=== PATIENT | female | born 1935 | race Caucasian/White ===

== ENCOUNTER 2019-07-31 17:54 | Inpatient (IN) | payer MEDICARE, OTHER ==
[~2019-07-31] VITALS: Ht 157.5 cm; Wt 55.9 kg
[~2019-07-31 17:54] MED LIST: AMARYL4 MG PO; ASPIR 8181 MG PO; AZITHROMYCIN250 MG PO; BYETTA10 MCG/0.0; METFORMIN HCL500 MG PO; NASONEX17 GM; NORVASC10 MG PO; SYNTHROID75 MCG PO; VITAMIN D31000 UNI1 PO; VYTORIN 10-201 EACH PO
[2019-07-31] MEDS ORDERED: SODIUM CHLORIDE 0.9% 500ML 500 ML IV STA (17:56)
[2019-07-31 18:38] LABS: BASOPHILS # (AUTO) 0.1 (0.0-0.1); BASOPHILS % 0.5 % (0.0-1.0); HEMATOCRIT 44.3 % (34.2-44.1); HEMOGLOBIN 13.9 g/dL (12.0-16.0); LYMPHOCYTES # (AUTO) 2.2 (1.0-3.2); LYMPHOCYTES % 11.9 % (18.0-39.1); MEAN CORPUSCULAR HEMOGLOBIN 30.9 pg (28-32); MEAN CORPUSCULAR HGB CONC 31.4 g/dL (31-35); MEAN CORPUSCULAR VOLUME 98.4 fL (81-99); MONOCYTES % 5.6 % (4.4-11.3); NEUTROPHILS # (AUTO) 14.3 (2.1-6.9); NEUTROPHILS % 77.4 % (38.7-80.0); PLATELET COUNT 368 x10e3/uL (140-360); RED CELL DISTRIBUTION WIDTH 15.4 % (11.7-14.4)
[2019-07-31 18:41] LABS: CLARITY,URINE CLEAR (CLEAR); COLOR,URINE YELLOW (YELLOW); LEUKOCYTE ESTERASE ,URINE NEGATIVE (NEGATIVE); NITRITE,URINE NEGATIVE (NEGATIVE); PROTEIN,URINE DIPSTICK 1+ (NEGATIVE)
[2019-07-31 18:42] LABS: AMPHETAMINES SCREEN,URINE NEGATIVE (NEGATIVE); BENZODIAZEPINES SCREEN,URINE NEGATIVE (NEGATIVE); BILIRUBIN,URINE SMALL (NEGATIVE); KETONES,URINE 3+ (NEGATIVE); PHENCYCLIDINE SCREEN,URINE NEGATIVE (NEGATIVE); URINE UROBILINOGEN 0.2 mg/dL (0.2 - 1)
[2019-07-31 18:45] LABS: INR 0.9; PARTIAL THROMBOPLASTIN TIME 26.8 seconds (23.8-35.5); PROTHROMBIN TIME 12.7 seconds (11.9-14.5)
[2019-07-31] MEDS ORDERED: INSULIN REGULAR, HUMAN 100 UNIT/1 ML 3ML VIAL IV STA (18:50)
[2019-07-31] MEDS ORDERED: SODIUM CHLORIDE 0.9% 1000ML 1,000 ML IV STA ×2 (18:50→21:30)
[2019-07-31 18:56] LABS: AMORPHOUS SEDIMENT,URINE RARE (FEW); BACTERIA,URINE RARE /HPF; EPITHELIAL CELLS,URINE RARE /LPF; YEAST,URINE RARE
--- NOTE | 2019-07-31 19:01 | Diagnostic Imaging Report ---
EXAMINATION: CHEST SINGLE (PORTABLE) INDICATION: COMPARISON: None FINDINGS: AP view TUBES and LINES: None. LUNGS/PLEURA: Lungs are well inflated. There are bilateral perihilar peribronchial thickening which could be due to lower airway disease or viral infection. Chronic changes/scarring are seen bilateral lung apices. There is no pleural effusion or pneumothorax. HEART AND MEDIASTINUM: The cardiomediastinal silhouette is unremarkable. BONES AND SOFT TISSUES: No acute osseous lesion. Soft tissues are unremarkable. UPPER ABDOMEN: No free air under the diaphragm. IMPRESSION: Bilateral perihilar peribronchial thickening which could be due to lower airway disease or viral infection. Signed by: Adal Davis MD on 07/31/2019 6:58 PM
[2019-07-31 19:20] LABS: ALANINE AMINOTRANSFERASE 10 IU/L (0-55); ALBUMIN 3.6 g/dL (3.5-5.0); BLOOD UREA NITROGEN 55 mg/dL (7-26); BUN/CREATININE RATIO 23 (6-25); CALCIUM 11.7 mg/dL (8.4-10.2); CHLORIDE 100 mmol/L (98-107); CREATININE, SERUM 2.37 mg/dL (0.57-1.11); EST GLOMERULAR FILTRATION RATE 20 ML/MIN (60-); SODIUM 135 mmol/L (136-145)
[2019-07-31 19:21] LABS: ALBUMIN/GLOBULIN RATIO 1.1 (0.8-2.0); ALKALINE PHOSPHATASE 71 IU/L (40-150); CREATINE KINASE 29 IU/L (29-168)
[2019-07-31 19:23] LABS: CARBON DIOXIDE < 5 mmol/L (22-29); GLUCOSE 568 mg/dL (74-118)
[2019-07-31 19:37] LABS: MAGNESIUM 2.7 MG/DL (1.3-2.1)
--- NOTE | 2019-07-31 19:44 | Diagnostic Imaging Report ---
History:AMS Comparison studies:None Technique: Axial images were obtained from the skull base to the vertex. Coronal and sagittal images reconstructed from the axial data. Intravenous contrast: None Dose modulation, iterative reconstruction, and/or weight based adjustment of the mA/kV was utilized to reduce the radiation dose to as low as reasonably achievable. Findings: Scalp/skull: No abnormalities. Extra-axial spaces: No masses. No fluid collections. Brain sulci: Mildly prominent. Ventricles: Mild compensatory dilatation. No hydrocephalus. Parenchyma: Scattered subtle hypodensities in the supratentorial white matter are small vessel ischemic changes. No masses, hemorrhage, acute or chronic cortical vascular insults. Sellar/suprasellar region: No abnormalities. Craniocervical junction: Patent foramen magnum. No Chiari one malformation. Incidental findings: Atherosclerotic calcifications in the carotid siphons . Impression: No acute abnormalities. Chronic findings: 1. Mild generalized volume loss. 2. Mild supratentorial white matter small vessel ischemic changes. Signed by: DR Geovanny Benitez M.D. on 07/31/2019 7:41 PM
[2019-07-31] MEDS ORDERED: SODIUM CHLORIDE 0.9% 1000ML 1,000 ML IV SCH (19:45)
--- OUTSIDE RECORDS SUMMARY | 2019-07-31 19:49 | XMS REPORT ---
Author Author [facility] Organization [facility] Address Unknown Phone Unavailable Care Team Providers Care Office Technician Name Role Phone KYLAH FUCHS Unavailable Unavailable Problems This patient has no known problems. Allergies, Adverse Reactions, Alerts This patient has no known allergies or adverse reactions. Medications This patient has no known medications. Results Test Description Test Time Test Comments Text Results Atomic Results Result Comments CT BRAIN WO 2019-07-31 19:39:00 [facility] [address] [address] Patient Name: ALEKSANDRA RAMOS MR #: [id number] : 1935 Age/Sex: 84/F Req #: [id number] Adm Physician: Ordered by: XIAO ORTIZ MD Report #: [id number] Location: ER Room/Bed: Procedure: [id number] CT/CT BRAIN WO Exam Date: 07/31/19 Exam Time: 1830 REPORT STATUS: Signed History:AMS Comparison studies:None Technique: Axial images were obtained from the skull base to the vertex. Coronal and sagittal images reconstructed from the axial data. Intravenous contrast: None Dose modulation, iterative reconstruction, and/or weight based adjustment of the mA/kV was utilized to reduce the radiation dose to as low as reasonably achievable. Findings: Scalp/skull: No abnormalities. Extra-axial spaces: No masses. No fluid collections. Brain sulci: Mildly prominent. Ventricles: Mild compensatory dilatation. No hydrocephalus. Parenchyma: Scattered subtle hypodensities in the supratentorial white m atter are small vessel ischemic changes. No masses, hemorrhage, acute or chronic cortical vascular insults. Sellar/suprasellar region: No abnormalities. Craniocervical junction: Patent foramen magnum. No Chiari one malformation. Incidental findings: Atherosclerotic calcifications in the carotid siphons . Impression: No acute abnormalities. Chronic findings: 1. Mild generalized volume loss. 2. Mild supratentorial white matter small vessel ischemic changes. Signed by: DR Geovanny Benitez M.D. on 07/31/2019 7:41 PM Dictated By: GEOVANNY PANDYA MD 40 Transcribed By: TRAVIS on 07/31/191940 COPY TO: XIAO ORTIZ MD CHEST SINGLE (PORTABLE) 2019-07-31 18:56:00 [address] [address] Patient Name: ALEKSANDRA RAMOS MR #: [id number] : 1935 Age/Sex: 84/F Req #: [id number] Adm Physician: Ordered by: HEAVENLY PARRA NP Report #: [id number] Location: ER Room/Bed: Procedure: [id number] DX/CHEST SINGLE (PORTABLE) Exam Date: 07/31/19 Exam Time: 1829 REPORT STATUS: Signed EXAMINATION: CHEST SINGLE (PORTABLE) INDICATION: COMPARISON: None FINDINGS: AP view TUBES and LINES: None. LUNGS/PLEURA: Lungs are well inflated. There are bilateral perihilar peribronchial thickening which could be due to lower airway disease or viral infection. Chronic changes/scarring are seen bilateral lung apices. There is no pleural effusion or pneumothorax. HEART AND MEDIASTINUM: The cardiomediastinal silhouette is unremarkable. BONES AND SOFT TISSUES: No acute osseous lesion. Soft tissues are unremarkable. UPPER ABDOMEN: No free air under the diaphragm. IMPRESSION: Bilateral perihilar peribronchial thickening which could be due to lower airway disease or viral infection. Signed by: Adal Breen MD on 07/31/2019 6:58 PM Dictated By: ADAL RBEEN MD 57 Transcribed By: TRAVIS on 07/31/191857 COPY TO: HEAVENLY PARRA NP
[2019-07-31] MEDS ORDERED: MAGNESIUM SULF 1GRAM/DEXTROSE 100 ML IV PRN (20:00)
[2019-07-31] MEDS ORDERED: DEXTROSE 5%/0.45% SOD CHL 1,000 ML IV SCH (20:00)
[2019-07-31] MEDS ORDERED: INSULIN REGULAR, HUMAN 3ML VL 100 UNIT in SODIUM CHLORIDE 0.9% 99 ML IV SCH ×2 (20:00)
[2019-07-31] MEDS: MEROPENEM 1GM 100 ML IV SCH (21:00)
[2019-07-31] MEDS ORDERED: SODIUM CHLORIDE 0.9% 1000ML 1,000 ML ONE (21:09)
--- NOTE | 2019-07-31 21:13 | NUR ---
DR. SHAIKH NOTIFIED AND AWARE OF PT'S TEMP; RECTAL TEMP 92.6; DR. SHAIKH ORDERED TO PLACE PT ON [facility]; REPEATED VERBAL ORDER TO VERIFY.
[2019-07-31] MEDS ORDERED: VANCOMYCIN 1GM/NS 250 ML 250 ML IV ONE (21:15)
[2019-07-31 21:51] LABS: FREE T4 (FREE THYROXINE) 0.81 ng/dL (0.8-1.8); THYROID STIMULATING HORMONE 0.035 uIU/mL (0.350-4.940)
[2019-07-31] MEDS ORDERED: SODIUM BICARBONATE 8.4% 50 ML VIAL IV STA (21:54)
[2019-07-31] MEDS ORDERED: HYDROCODONE/APAP 5MG-325MG TAB PO PRN (22:00)
[2019-07-31] MEDS ORDERED: ONDANSETRON HCL INJ 2MG/ML 2ML 2 MG/ML VIAL IV PRN (22:00)
[2019-07-31] MEDS ORDERED: ACETAMINOPHEN 325 MG TAB PO PRN (22:00)
[2019-07-31] MEDS ORDERED: SODIUM BICARBONATE 8.4% INJ 50 ML SYR IV ONE (22:00)
--- NOTE | 2019-07-31 22:13 | NUR ---
LINE SUPPLY AT BEDSIDE FOR CXR FOR CENTRAL LINE PLACEMENT.
[2019-07-31] MEDS ORDERED: NOREPINEPHRINE INJ 4MG/4ML 8 MG in DEXTROSE 5% 250ML 250 ML IV ONE (22:15)
[2019-07-31] MEDS ORDERED: NOREPINEPHRINE 8 MG/D5W 250 ML 250 ML ONE (22:23)
[2019-07-31] MEDS ORDERED: SODIUM BICARBONATE 8.4% INJ 50 ML SYR IV STA (22:41)
--- NOTE | 2019-07-31 22:41 | Diagnostic Imaging Report ---
EXAMINATION: CHEST XRAY LINE PLACEMENT INDICATION: ^S/P LINE PLACEMENT ^[id number] ^2225 ^Y COMPARISON: 07/31/2019 IMPRESSION: Interval placement of a right internal jugular vein central venous catheter. The tip projects over the distal SVC. The lungs remain clear. The cardiomediastinal silhouette is unremarkable. No pneumothorax. Signed by: Kevin Killian MD on 07/31/2019 10:37 PM
--- NOTE | 2019-07-31 22:42 | Operative Report ---
DATE OF PROCEDURE: SURGEON: Raúl Castellano MD PROCEDURE: Central line placement under ultrasound guidance. PREOPERATIVE DIAGNOSIS: Acute kidney injury and hypotension. POSTOPERATIVE DIAGNOSIS: Acute kidney injury and hypotension. ANESTHESIA: 1% lidocaine for local anesthesia. CONSENT: Procedure was considered emergent due to the hypotension, profound acidosis and possible sepsis. PROCEDURE IN DETAIL: The patient was placed in a supine position. The right neck was prepped sterilely with chlorhexidine. A full length sterile drape, mask, cap, sterile gown, and sterile gloves were used. An ultrasound machine was used to locate the right internal jugular vein. 1% lidocaine was used to anesthetize the skin. The right internal jugular vein was then cannulated under direct visualization on the first attempt with a 16-gauge needle. A wire was passed through the needle. The skin was subsequently dilated and a triple-lumen catheter was placed over the wire by the Seldinger technique. All the ports flushed. COMPLICATIONS: None. ESTIMATED BLOOD LOSS: None. Raúl Castellano MD [facility]/MODL /[id number]
[2019-07-31] MEDS ORDERED: SODIUM BICARBONATE 8.4% SYRING 50 ML ONE ×2 (22:44→23:29)
--- NOTE | 2019-07-31 23:02 | Consultation ---
DATE OF CONSULTATION: Pulmonary Critical Care Consultation CHIEF COMPLAINT: Confusion and hyperglycemia. REFERRING PHYSICIAN: Dr. Eron Sutherland. HISTORY OF PRESENT ILLNESS: The patient is an 84-year-old woman. She has a history of hypothyroidism, hypertension, and insulin-dependent diabetes. She has had difficulty with her blood sugars recently. According to the son, she became more obtunded over the last 1-2 days. She may also have had a fever. There are no specific complaints of cough, difficulty breathing, or abdominal pain. There is no specific complaint of dysuria or hematuria. PAST MEDICAL HISTORY: 1. Hypertension. 2. Diabetes. 3. Hypothyroidism. PAST SURGICAL HISTORY: Not obtainable. SOCIAL HISTORY: The patient is not a smoker. The patient is not a drinker. ALLERGIES: THE PATIENT IS ALLERGIC TO LEVOFLOXACIN WELL PENICILLINS AND ATORVASTATIN. REVIEW OF SYSTEMS: There are possible fevers. There is no headache. There is no neck pain. There is no chest pain. The patient has no difficulty breathing. There is no abdominal pain. There is no nausea. The patient does not have any leg edema. PHYSICAL EXAMINATION: VITAL SIGNS: Blood pressure is 113/47, saturation is 100%. The pulse is 79 and the respiratory rate is 18. HEENT: Shows no facial swelling or erythema. LYMPHATIC: Shows no submandibular, cervical, or supraclavicular adenopathy. CARDIAC: Reveals a regular rate and rhythm with a normal S1, S2. LUNGS: Auscultation of lungs reveals clear breath sounds bilaterally. There is no wheezing. ABDOMEN: Soft and nontender. There is no rebound or guarding. EXTREMITIES: Show no leg edema or calf tenderness. There is no cyanosis clubbing. SKIN: Shows no rashes. NEUROLOGICAL: Shows no focal abnormalities. LABORATORY DATA: White blood cell count is 18.5 and hemoglobin is 13.9. The platelet count is 368. Lactic acid is 2.2 and the calcium is 11.7. The sodium is 135 and the potassium is 6. Chloride is 100 and the carbon dioxide is less than 5. BUN and creatinine ratio is 55 and 2.37. Albumin is 3.6 and total protein is 7. PT and PTT are normal. Urinalysis shows 3+ ketones and 2+ glucose. RADIOGRAPHIC DATA: CT scan of the brain shows no acute abnormalities. Chest x-ray shows some perihilar thickening and rhonchi. CT scan of the chest shows some . IMPRESSION: 1. Diabetic ketoacidosis. 2. Acute kidney injury. 3. Profound dehydration. 4. Hypothyroidism. 5. Hypertension. 6. Metabolic encephalopathy. PLAN: 1. Intravenous fluid. 2. Begin insulin according to the DKA protocol. 3. Panculture, the patient would begin appropriate antibiotics. 4. Continue to monitor mental status. 5. Repeat creatinine in the morning. Raúl Castellano MD [facility]/MODL /[id number]
[2019-07-31] MEDS: SODIUM CHLORIDE 0.9% 1000ML 1,000 ML IV SCH (23:03)
[2019-07-31] MEDS ORDERED: SODIUM CHLORIDE 0.9% 1000ML 1,000 ML IV ONE (23:15)
--- NOTE | 2019-07-31 23:16 | NUR ---
RT IJ OK TO USE PER DR FUCHS.
[2019-08-01] VITALS (29 sets, daily range): BP systolic 83–127; BP diastolic 39–52
[2019-08-01] MEDS: SODIUM CHLORIDE 0.9% 1000ML 1,000 ML IV SCH
--- NOTE | 2019-08-01 | NUR ---
RECEIVED FROM ER
--- NOTE | 2019-08-01 00:13 | History and Physical ---
CHIEF COMPLAINT: Sepsis. HISTORY OF PRESENT ILLNESS: I am unable to obtain any information from the patient. There is currently no family. The patient is lethargic and information is being obtained from the ER note from the nursing staff. This is an 84-year-old female, who has not been feeling well over the last several days, as all the information that was provided to me comes in with underlying sepsis. She was found to be hypotensive, hypothermic, elevated white count, found also to be in DKA with a bicarb level found to be undetectable and was admitted to the ICU. The patient was evaluated at bedside in the ER. She is currently very lethargic and minimally responsive on exam. The ICU physician already came and evaluated the patient. She has now a right central line and the internal jugular, and started on IV Levophed pressors for blood pressure support. The patient is seen and evaluated at bedside on the medical floor in the ER. REVIEW OF SYSTEMS: Unable to obtain. ALLERGIES: ERYTHROMYCIN, PENICILLIN, ATORVASTATIN, AND LEVAQUIN. HOME MEDICATIONS: 1. Norvasc. 2. Z-Kavon. 3. Byetta. 4. Metformin. 5. Mometasone. 6. Vytorin. 7. Loperamide. 8. Aspirin. 9. Levothyroxine. PAST MEDICAL HISTORY: What is documented is hypothyroidism, type 2 diabetes, hypertension. PAST SURGICAL HISTORY: Unable to obtain. FAMILY HISTORY: Unable to obtain. SOCIAL HISTORY: Unable to obtain. PHYSICAL EXAMINATION: VITAL SIGNS: Temperature initially was 97.7, then 92.6 rectally, pulse 73, respiratory rate is 17, blood pressure is 98/48, she is on 100% on room air. GENERAL: She is lethargic on examination, unable to obtain any information. HEENT: Head; normocephalic, atraumatic. Eyes; pupils are equal, round, and reactive to light bilaterally. Extraocular movements intact bilaterally. Throat; no evidence of erythema or exudates in the posterior pharynx. Has poor dentition. NECK: Supple. Good range of motion. PULMONARY: Clear to auscultation bilaterally. No wheezing, no rales, no rhonchi, no crackles appreciated. CARDIOVASCULAR: Positive S1 and S2. No murmurs, rubs, or gallops appreciated. ABDOMEN: Soft, nondistended, and nontender to palpation. Bowel sounds present. MUSCULOSKELETAL: Unable to obtain. NEUROLOGIC: Unable to obtain. SKIN: Intact. Warm to touch. Good cap refill. PSYCHIATRIC: Currently lethargic. EXTREMITIES: No edema. LABORATORY DATA: Show white count 18.5, hemoglobin 13.9, hematocrit is 44, platelets of 368. Coagulation; PT 12, INR 0.9, PTT 26. Chemistry; sodium 135, potassium is 6, chloride is 100, bicarbonate is less than 5, anion gap of 36, BUN of 55, creatinine is 2.37, glucose is 568. Lactic acid was 2.2, calcium 11.7, magnesium is 2.5, total bilirubin is 0.4, AST 11, ALT 10, alkaline phosphatase 71. CK is 29, CK-MB is 1.5, troponin was 0.001. BNP was 119, albumin is 3.6. TSH 0.035. Urinalysis; 1+ protein, wbc's in the urine none, leukocyte esterase none, nitrate negative. Urine drug screen negative. Acetaminophen level negative. MICROBIOLOGY: Blood cultures are pending. Urine cultures are pending. IMAGING STUDIES: Chest x-ray, bilateral perihilar bronchial thickening, which could be due to lower airway disease or viral infection. CT brain shows mild generalized volume loss. Mild supratentorial white matter small-vessel ischemic changes. No acute abnormalities. IMPRESSION: 1. Septic shock, unknown etiology at this time, but could be secondary to community-acquired pneumonia. 2. Diabetic ketoacidosis. 3. Anion gap metabolic acidosis. 4. Hypotension, underlying sepsis. 5. Lactic acidosis. 6. Acute kidney injury secondary to dehydration with hyperkalemia and hypercalcemia. PLAN: At this time, blood and urine cultures have been collected. Chest x-ray concerning for underlying possible viral pneumonia versus community-acquired pneumonia. She has already received normal saline boluses. Pulmonary Critical Care has been consulted. She is on broad-spectrum IV antibiotic therapy with IV Merrem. The patient is hypothermic. She will be going to the ICU. She has been already started on IV Levophed for pressors. A central line has been placed by the ICU attending. She will get 2 amps of sodium bicarbonate as her bicarb level is undetectable. I will start her on bicarbonate drip, D5 with 3 amps of bicarb at 150 mL/h. Repeat chemistry at 2300. Nursing staff to call me. Discussed with them already. She has been started on a DKA protocol as well and Endocrinology has been consulted. Serum ketone has been ordered. There is currently no family at bedside to determine code status. We will put her on Lovenox for DVT prophylaxis. The patient is in critical condition. She is going to the ICU. Pulmonary Critical Care and Endocrinology have been consulted. MD KRISTIN Vaca/MING /[id number]
[2019-08-01 00:40] LABS: BASOPHILS # (AUTO) 0.1 (0.0-0.1); BASOPHILS % 0.4 % (0.0-1.0); HEMATOCRIT 34.9 % (34.2-44.1); HEMOGLOBIN 11.4 g/dL (12.0-16.0); LYMPHOCYTES # (AUTO) 2.4 (1.0-3.2); LYMPHOCYTES % 12.6 % (18.0-39.1); MEAN CORPUSCULAR HEMOGLOBIN 30.6 pg (28-32); MEAN CORPUSCULAR HGB CONC 32.7 g/dL (31-35); MONOCYTES # (AUTO) 2.8 (0.2-0.8); MONOCYTES % 14.7 % (4.4-11.3); NEUTROPHILS # (AUTO) 12.7 (2.1-6.9); NEUTROPHILS % 67.8 % (38.7-80.0); RED BLOOD COUNT 3.73 x10e6/uL (3.6-5.1)
[2019-08-01 00:47] LABS: MEAN CORPUSCULAR VOLUME 93.6 fL (81-99); PLATELET COUNT 293 x10e3/uL (140-360)
[2019-08-01 00:54] LABS: ANION GAP 26.7 mmol/L (8-16); CALCIUM 10.1 mg/dL (8.4-10.2); CREATININE, SERUM 1.69 mg/dL (0.57-1.11); MAGNESIUM 2.3 MG/DL (1.3-2.1)
[2019-08-01] MEDS: SODIUM BICARBONATE 8.4% SYRING 150 ML in DEXTROSE 5% 1,000 ML IV SCH ×2 (00:55→06:25)
[2019-08-01] MEDS ORDERED: VANCOMYCIN 1GM/NS 250 ML 250 ML ONE (01:00)
[2019-08-01 01:01] LABS: POTASSIUM 3.7 mmol/L (3.5-5.1)
[2019-08-01 01:08] LABS: CREATINE KINASE 43 IU/L (29-168)
[2019-08-01 04:34] LABS: BASOPHILS % 0.2 % (0.0-1.0); HEMATOCRIT 30.9 % (34.2-44.1); HEMOGLOBIN 10.3 g/dL (12.0-16.0); LYMPHOCYTES # (AUTO) 2.2 (1.0-3.2); LYMPHOCYTES % 12.7 % (18.0-39.1); MEAN CORPUSCULAR HEMOGLOBIN 30.5 pg (28-32); MEAN CORPUSCULAR HGB CONC 33.3 g/dL (31-35); MEAN CORPUSCULAR VOLUME 91.4 fL (81-99); MONOCYTES # (AUTO) 2.3 (0.2-0.8); MONOCYTES % 13.2 % (4.4-11.3); NEUTROPHILS # (AUTO) 12.3 (2.1-6.9); NEUTROPHILS % 70.1 % (38.7-80.0); PLATELET COUNT 291 x10e3/uL (140-360); RED BLOOD COUNT 3.38 x10e6/uL (3.6-5.1); RED CELL DISTRIBUTION WIDTH 14.9 % (11.7-14.4)
[2019-08-01 04:45] LABS: CREATINE KINASE 39 IU/L (29-168)
[2019-08-01 05:23] LABS: ALBUMIN 2.6 g/dL (3.5-5.0); ALBUMIN/GLOBULIN RATIO 1.1 (0.8-2.0); ANION GAP 18.1 mmol/L (8-16); CALCIUM 9.6 mg/dL (8.4-10.2); CREATININE, SERUM 1.4 mg/dL (0.57-1.11); MAGNESIUM 1.9 MG/DL (1.3-2.1); POTASSIUM 3.1 mmol/L (3.5-5.1)
[2019-08-01] MEDS: LEVOTHYROXINE SODIUM 75 MCG TAB PO SCH (05:28)
--- NOTE | 2019-08-01 06:19 | Diagnostic Imaging Report ---
EXAMINATION: CHEST SINGLE (PORTABLE) INDICATION: ^DKA COMPARISON: None FINDINGS: AP view TUBES and LINES: Right internal jugular vein central line terminates in the region of the mid SVC. LUNGS: Lungs are well inflated. Lungs are clear. There is no evidence of pneumonia or pulmonary edema. PLEURA: No pleural effusion or pneumothorax. HEART AND MEDIASTINUM: The cardiomediastinal silhouette is unremarkable. BONES AND SOFT TISSUES: No acute osseous lesion. Soft tissues are unremarkable. UPPER ABDOMEN: No free air under the diaphragm. IMPRESSION: No acute thoracic radiographic abnormality. Signed by: Kevin Killian MD on 08/01/2019 6:16 AM
--- NOTE | 2019-08-01 06:37 | NUR ---
CONSULT CALLED TO DR RAMIRES, NEW ORDERS NOTED
[2019-08-01] MEDS ORDERED: INSULIN REGULAR, HUMAN 3ML VL 100 UNIT in SODIUM CHLORIDE 0.9% 100 ML 99 ML IV SCH ×2 (07:15)
[2019-08-01] MEDS: DEXTROSE 5%/0.45% SOD CHL 1,000 ML IV SCH ×2 (07:35→16:30)
[2019-08-01] MEDS: ASPIRIN 81 MG CHEW TAB PO SCH (08:08)
[2019-08-01] MEDS: MEROPENEM 1GM 100 ML IV SCH ×2 (08:08→20:49)
[2019-08-01 08:11] LABS: CALCIUM 9.6 mg/dL (8.4-10.2); CREATININE, SERUM 1.41 mg/dL (0.57-1.11); MAGNESIUM 1.9 MG/DL (1.3-2.1)
--- NOTE | 2019-08-01 08:18 | NUR ---
SPOKE WITH SON WHOM STATES SHE WAS INDEPENDENT UP UNTIL DR MONROE CHANGED A MEDICATION WHICH CAUSED A YEAST INFECTION AND HER BLOOD SUGARS BEGAN RUNNING AT 400 TO 500. PRIOR TO ADMISSION NO DME OR HOME HEALTH. DISCUSSED ALL LEVELS OF CARE FOR DISCHARGE PLANNING POSSIBILITIES. KISHAN KIMBLE STATES PLAN WOULD BE INDEPENDENT OR TO HIS HOME IF NEEDED AND SHE WILL AGREE.
[2019-08-01] MEDS ORDERED: ALBUMIN 25% 25GM 100ML 0.25 GM/ML BTL IV ONE (08:30)
[2019-08-01] MEDS ORDERED: MEROPENEM 1GRAM 1 GM in SODIUM CHLORIDE 0.9% 100 ML 100 ML IV SCH (09:00)
--- NOTE | 2019-08-01 09:04 | Progress Note ---
DATE: SUBJECTIVE: The patient is now in the ICU. She received several L of fluid, but remains hypotensive. She is on Levophed at 13 mcg. She continues on insulin as well as intravenous fluids at 120 mL an hour. She does not have fevers. She complains of difficulty hearing and feeling fatigued. She does not complain of pain. OBJECTIVE: VITAL SIGNS: The patient is afebrile. The blood pressure is 83/40 with a MAP of 54. Saturation is 94%. HEENT: Shows no facial swelling or erythema. There is a right IJ line in place. The site looks clean. There is no drainage. CARDIAC: Reveals a regular rate and rhythm with normal S1 and S2. There are no murmurs or rubs heard. LUNGS: Auscultation of lungs reveals decreased breath sounds at the bases. There is no wheezing. ABDOMEN: Soft, nontender. There is no rebound or guarding. EXTREMITIES: Show no leg edema or calf tenderness. There is no cyanosis or clubbing. SKIN: Shows no rashes. NEUROLOGICAL: Shows no focal abnormalities. LABORATORY DATA: BUN to creatinine ratio is improved to 48/1.14. The potassium is 3.01. Sodium is 143. The bicarbonate is improved to 18. The anion gap is decreased to 14. The white blood cell count is 17.5 and hemoglobin is 10.3. The platelet count is 291. ASSESSMENT: 1. Diabetic ketoacidosis. 2. Hypovolemic shock. 3. Acute kidney injury. 4. Hearing loss. 5. Anemia, unspecified. PLAN: 1. Give additional albumin 50 g now. 2. Continue intravenous fluids and wean Levophed. 3. Continue insulin drip and monitoring of electrolytes. 4. Replace potassium. 5. Echocardiogram is pending. 6. Continue antibiotics until culture results are available. 7. Case discussed with the patient, nursing staff, and Internal Medicine. Greater than 35 minutes in direct critical care time. Raúl Castellano MD [facility]/MODL /[id number]
[2019-08-01] MEDS ORDERED: ALBUMIN 25% 25GM 100ML 200 ML IV ONE (09:15)
[2019-08-01 09:51] LABS: LYMPHOCYTES % (MANUAL) 9 % (19-48); MONOCYTES % (MANUAL) 13 % (3.4-9.0); NEUTROPHILS % (MANUAL) 77 % (40-74)
[2019-08-01 09:52] LABS: ANISOCYTOSIS SLIGHT; PLATELET ESTIMATE ADEQUATE; PLATELET MORPHOLOGY COMMENT NORMAL; RBC MORPHOLOGY COMMENT NORMAL
[2019-08-01] MEDS ORDERED: NOREPINEPHRINE INJ 4MG/4ML 8 MG in DEXTROSE 5% 250ML 250 ML IV PRN (11:15)
[2019-08-01] MEDS ORDERED: NOREPINEPHRINE 8 MG/D5W 250 ML 250 ML ONE (11:19)
[2019-08-01 12:46] LABS: CREATINE KINASE 37 IU/L (29-168)
[2019-08-01] MEDS ORDERED: INSULIN REGULAR, HUMAN 3ML VL 100 UNIT in SODIUM CHLORIDE 0.9% 100 ML IV SCH ×2 (13:15)
[2019-08-01] MEDS ORDERED: DEXTROSE 50% SYRINGE 50 ML IV PRN (13:15)
[2019-08-01 13:53] LABS: THYROID STIMULATING HORMONE 0.017 uIU/mL (0.350-4.940)
[2019-08-01] MEDS: ENOXAPARIN SOD INJ 40 MG/0.4 ML SYR SC SCH (18:35)
--- NOTE | 2019-08-01 18:56 | Consultation ---
DATE OF CONSULTATION: 07/31/2019 Endocrine Consultation This is a patient of Dr. Olivier. Thank you very much for referring this patient. HISTORY OF PRESENT ILLNESS: This is an 84-year-old white female, who was referred to me for evaluation of uncontrolled diabetes mellitus, diabetic ketoacidosis, and altered mental status. Most of the history is available from the chart and the nursing staff. The patient reportedly is a known diabetic for almost 15 to 20 years and takes a combination of the insulin and metformin at home. According to the nurse's notes, she is also taking the Victoza. She came to the hospital because of altered mental status and in the emergency room, her blood sugar was found to be 568 and anion gap was 36 with CO2 of less than 5 and a potassium of 6.0. The patient has history of hypertension. No history of any major neurological problems in the past. PHYSICAL EXAMINATION: GENERAL: Today, the patient is lethargic. She is arousable, responds to the oral commands. VITAL SIGNS: Her heart rate is around 95 and blood pressure is 122/60 mmHg. HEENT: Essentially unremarkable. Thyroid is palpable. Clinically, she is near euthyroid. CHEST: Bilateral vesicular breathing. She has mild bronchospasm. CARDIOVASCULAR: First and second heart sound. There is no third or fourth heart sound. Ejection systolic murmur grade 2/6. The patient has mild pedal edema. CLINICAL IMPRESSION: Diabetes mellitus type 2, diabetic ketoacidosis, altered mental status, history of hypertension, and rule out dementia. PLAN: At this time is to continue the insulin drip, monitor her blood sugars closely, advance her diet slowly, and continue the IV fluids for now. Thanks again for referring this patient. I will be following this patient with you. MD NIEVES Blackwell/MING /[id number]
--- NOTE | 2019-08-01 21:02 | Progress Note ---
DATE: 08/01/2019 Medicine Progress Note SUBJECTIVE: The patient is much more awake today. The patient is still very lethargic. She has improved compared to yesterday. Her temperature is much improved. She is not hypothermic. She is still on broad-spectrum IV antibiotics. Nurse was attempting to feed her, but she was still too lethargic to even eat. PHYSICAL EXAMINATION: VITAL SIGNS: Temperature is 100.2, T-max is 100.2, pulse 86, respirations 15, blood pressure is 108/49, pulse ox is 96% on room air. She is still currently in the ICU. GENERAL: In no acute distress. She is alert, awake, and oriented x1. She is very lethargic on exam, but was arousable. HEENT: Head is normocephalic and atraumatic. Eyes; pupils are equal, round, and reactive to light bilaterally. Extraocular muscles are intact bilaterally. Throat; no evidence of any erythema, exudates in the posterior pharynx. Has poor dentition. NECK: Supple. Good range of motion. PULMONARY: Clear to auscultation bilaterally. No wheezing, rales, or rhonchi. No crackles appreciated. CARDIOVASCULAR: Positive S1 and S2. No murmurs, rubs, or gallops appreciated. ABDOMEN: Soft, nondistended, nontender to palpation. Bowel sounds present. MUSCULOSKELETAL: Strength is 5/5 throughout. No evidence of any muscle deficits on examination. No weakness appreciated. NEUROLOGIC: Cranial nerves 2 through 12 grossly intact. No evidence of any neurological deficits on exam. SKIN: Intact, warm to touch. Good cap refill. PSYCHIATRIC: Normal affect and mood. EXTREMITIES: No edema. Good range of motion throughout. LABORATORY DATA: White count 17.5, hemoglobin 10.3, hematocrit 31, and platelets of 291. Chemistry; sodium 143, potassium 3, chloride 114, bicarbonate 18, anion gap of 14, BUN 48, creatinine is 1.41, and glucose is 200. A1c is 9.9, magnesium is 1.9, calcium is 9.6, cortisol level is pending. TSH is 0.017. Albumin was 2.6. Troponins were all negative. Urinalysis noted. MICROBIOLOGY: Blood and urine cultures are pending. IMAGING STUDIES: Chest x-ray this morning shows no acute cardiothoracic abnormality. IMPRESSION: 1. Septic shock, unknown etiology, could be secondary to community-acquired pneumonia. 2. Diabetic ketoacidosis, much improved. 3. Anion gap metabolic acidosis-improved. 4. Hypotension, still on low-dose Levophed. 5. Lactic acidosis, resolved. 6. Acute kidney secondary to dehydration with mild hyperkalemia and hypercalcemia, now hypokalemic. PLAN: At this time blood and urine culture showed no growth today. Continue with broad-spectrum IV antibiotic therapy. The patient hydration state is much improved. Stop the bicarbonate drip. Her bicarb is improved. Her glucose is improved tremendously. Repeat labs in the morning. Continue with IV fluids. Pulmonary Critical Care and Endocrinology are following. Get PT/OT evaluation. Lovenox for DVT prophylaxis. Replace electrolytes accordingly. Discussed plan of care with nursing staff. Lovenox for DVT prophylaxis. Consultants involved Pulmonary Critical Care and Endocrinology. MD KRISTIN Vaca/MING /[id number]
[2019-08-02] VITALS (26 sets, daily range): BP systolic 98–141; BP diastolic 45–83
[2019-08-02] MEDS: DEXTROSE 5%/0.45% SOD CHL 1,000 ML IV SCH ×3 (00:11→17:27)
--- NOTE | 2019-08-02 02:46 | NUR ---
AWAKE AND ALERT AT THIS TIME. ORIENTED TO PERSON AND FACT THAT SHE IS IN THE HOSPITAL - UNABLE TO STATE WHICH HOSPITAL. HOLDING HER OWN CUP AND DRINKING WATER.
[2019-08-02 03:48] LABS: BASOPHILS % 0.1 % (0.0-1.0); EOSINOPHILS # (AUTO) 0.1 (0.0-0.4); EOSINOPHILS % 0.8 % (0.0-6.0); HEMATOCRIT 31.5 % (34.2-44.1); HEMOGLOBIN 11.1 g/dL (12.0-16.0); LYMPHOCYTES # (AUTO) 2.3 (1.0-3.2); LYMPHOCYTES % 16.5 % (18.0-39.1); MEAN CORPUSCULAR HEMOGLOBIN 30.9 pg (28-32); MEAN CORPUSCULAR HGB CONC 35.2 g/dL (31-35); MONOCYTES # (AUTO) 1.4 (0.2-0.8); MONOCYTES % 9.8 % (4.4-11.3); NEUTROPHILS # (AUTO) 9.9 (2.1-6.9); NEUTROPHILS % 71.6 % (38.7-80.0); PLATELET COUNT 253 x10e3/uL (140-360); RED BLOOD COUNT 3.59 x10e6/uL (3.6-5.1); RED CELL DISTRIBUTION WIDTH 15.3 % (11.7-14.4)
[2019-08-02 04:03] LABS: ANION GAP 9.1 mmol/L (8-16); BUN/CREATININE RATIO 22 (6-25); CALCIUM 8.7 mg/dL (8.4-10.2); CARBON DIOXIDE 25 mmol/L (22-29); CHLORIDE 112 mmol/L (98-107); CREATININE, SERUM 0.86 mg/dL (0.57-1.11); EST GLOMERULAR FILTRATION RATE > 60 ML/MIN (60-); GLUCOSE 93 mg/dL (74-118); SODIUM 144 mmol/L (136-145)
[2019-08-02 04:04] LABS: BLOOD UREA NITROGEN 19 mg/dL (7-26); POTASSIUM 2.1 mmol/L (3.5-5.1)
[2019-08-02 04:05] LABS: MEAN CORPUSCULAR VOLUME 87.7 fL (81-99)
[2019-08-02] MEDS: POTASSIUM CHLORIDE 20MEQ/100ML 200 ML IV PRN (04:07)
--- NOTE | 2019-08-02 04:09 | NUR ---
POTASSIUM 2.1, IV REPLACEMENT INITIATED PER ORDERS
[2019-08-02] MEDS ORDERED: POTASSIUM CHLORIDE 20MEQ/100ML 200 ML ONE (04:11)
[2019-08-02] MEDS: LEVOTHYROXINE SODIUM 75 MCG TAB PO SCH (06:01)
[2019-08-02] MEDS ORDERED: POTASSIUM CHLORIDE 20MEQ/100ML 200 ML IV ONE (06:45)
[2019-08-02] MEDS: ASPIRIN 81 MG CHEW TAB PO SCH (08:22)
[2019-08-02] MEDS: MEROPENEM 1GM 100 ML IV SCH ×2 (08:22→20:49)
[2019-08-02] MEDS ORDERED: INSULIN GLARGINE 100 UNITS/ML VIAL SQ ONE (14:15)
[2019-08-02 16:02] LABS: ANION GAP 10.8 mmol/L (8-16); BLOOD UREA NITROGEN 16 mg/dL (7-26); BUN/CREATININE RATIO 21 (6-25); CARBON DIOXIDE 23 mmol/L (22-29); CHLORIDE 106 mmol/L (98-107); CREATININE, SERUM 0.76 mg/dL (0.57-1.11); EST GLOMERULAR FILTRATION RATE > 60 ML/MIN (60-); GLUCOSE 185 mg/dL (74-118); POTASSIUM 3.8 mmol/L (3.5-5.1); SODIUM 136 mmol/L (136-145)
[2019-08-02] MEDS: ENOXAPARIN SOD INJ 40 MG/0.4 ML SYR SC SCH (16:18)
--- NOTE | 2019-08-02 16:38 | NUR ---
WOUND CARE SCONSULT FOR 84 YO FEMALE HX OF SEPSIS AND DKA HUMBERTO 17 ON MODERATE PUP STATUS AND INTERVENTIONS AND ALTERNATING PRESSURE MATTRESS. LABS: WBC-13.83 HGB- 11.1 GLUCOSE-185 SKIN ASSESSMENT COMPLETE PATIENT PRESENTS WITH: 1)STAGE II PRESSURE ULCER TO POSTERIOR SACREAL GLUTEAL AREA; MEASURING 1 CM X 0.8CM X 0.1 CM WITH MINIMAL SEROUSANGUINEOUS DRAINAGE, AND 95 % PINK GRANULATION, 5% YELLOW SLOUGH AND PINK BLANCHABLE PERIWOUND AREA . RECOMMENDATIONS: NURSING TO CONTINUE TO MONITOR PATIENT AND TO FOLLOW MODERATE PUP INTERVENTIONS NURSING TO CONTINUE TO GET PATIENT OUT OF BED FOR MEALS AND MUCH TOLERATED NURSING TO CLEAN STAGE II PRESSURE POSTERIOR SACREAGLUTEAL AREA WITH NORMAL SALINE, PAT DRY WITH 4X4 GAUZE, APPLY FIBRACOL TO WOUND BED, THEN APPLY VENELEX OINTMENT TO PERIWOUND AND COVER WITH ALLEVYN FOAM DRESSING DAILY AND NEEDED. NURSING TO CONTINUE TO ASSIST PATIENT NEEDED WITH MEALS AND NUTRITIONAL SUPPLEMENTS TO ENSURE PROPER REQUIREMENTS FOR HEALING NURSING TO CONTINUE TO OFFLOAD FEET AND HEELS NEEDED WITH PILLOW SUSPENSION WHEN IN BED. NURSING TO APPLY BILATERAL HEEL PROTECTORS WHILE IN BED. NURSING TO REPOSITION PATIENT SIDE TO SIDE Q2H AND PRN. NURSING TO CONSULT WOUND CARE NEEDED. Addendum: 08/02/19 at 1645 by Chelsea Carcamo RN Amended: Links added.
--- NOTE | 2019-08-02 17:20 | Progress Note ---
DATE: SUBJECTIVE: The patient feels better. She has a hearing aids now. She has been switched to subcu insulin. PHYSICAL EXAMINATION: VITAL SIGNS: The blood pressure is 118/62 and the saturation is 98%. HEENT: Shows no facial swelling or erythema. CARDIAC: Reveals regular rate and rhythm with normal S1, S2. LUNGS: Auscultation of lungs reveals rhonchorous breath sounds bilaterally. There is no wheezing. ABDOMEN: Soft, nontender. IMPRESSION: 1. Diabetic ketoacidosis. 2. Hypokalemia. 3. Acute kidney injury. 4. Hearing loss. 5. Anemia, unspecified. PLAN: 1. Continue to give insulin and monitor blood sugars. 2. Advance diet. 3. Await culture results. 4. Taper antibiotics once final culture results are available. 5. Transfer out of intensive care unit. Raúl Castellano MD [facility]/MODL /[id number]
[2019-08-02] MEDS: INSULIN LISPRO 100 UNIT/1 ML 3ML VIAL SQ SCH ×3 (17:21→20:49)
--- NOTE | 2019-08-02 18:43 | NUR ---
patient oob to chair all afternoon. ambulated with physical therapy in icu. pt forgetful at times but oriented and alert. Levophed off 7am. vital signs remain stable. insulin gtt off per dr. bah. bg now achs. continue ivf' with rate decreased to 80ml/hr.
[2019-08-02] MEDS: INSULIN GLARGINE 100 UNITS/ML VIAL SQ SCH (20:55)
[2019-08-03] VITALS (13 sets, daily range): BP systolic 110–135; BP diastolic 54–73
--- NOTE | 2019-08-03 01:06 | Progress Note ---
DATE: 08/02/2019 Medicine Progress Note SUBJECTIVE: The patient is doing much better today in the ICU. She is alert, awake, and oriented. She is eating her food during my evaluation. PHYSICAL EXAMINATION: VITAL SIGNS: Temperature is 98.5, pulse 84, respiratory rate 19, blood pressure is 126/60, pulse ox 98% on room air. GENERAL: In no acute distress. Alert and oriented x3. Cooperative on examination. HEENT: Head is normocephalic and atraumatic. Eyes; pupils are equal, round, and reactive to light bilaterally. Extraocular muscles are intact bilaterally. Throat; no evidence of any erythema, exudates in the posterior pharynx. Has poor dentition. NECK: Supple. Good range of motion. PULMONARY: Clear to auscultation bilaterally. No wheezing, rales, or rhonchi. No crackles appreciated. CARDIOVASCULAR: Positive S1, S2. No murmurs, rubs, or gallops appreciated. ABDOMEN: Soft, nondistended, and nontender no palpation. Bowel sounds present. MUSCULOSKELETAL: Strength is 5/5 throughout. NEUROLOGIC: Cranial nerves II through XII grossly intact. She is alert, awake, and oriented. SKIN: Intact. Warm to touch. Good cap refill. PSYCHIATRIC: Normal affect and mood. EXTREMITIES: No edema. Good range of motion throughout. LABORATORY DATA: Show white count down to 13.8, hemoglobin 11, hematocrit 31, platelets of 253. Sodium 136, potassium 3.8, chloride 106, bicarb 23, anion gap of 10, BUN of 16, creatinine 0.76, glucose is 185, calcium is 9. Blood cultures, no growth. Urine cultures, no growth. IMPRESSION: 1. Septic shock, unknown etiology, likely to be underlying community-acquired pneumonia. 2. Diabetic ketoacidosis-resolved. 3. Anion gap metabolic acidosis, resolved. 4. Hypotension-resolved. 5. Lactic acidosis, resolved. 6. Acute kidney injury secondary to dehydration with mild hyperkalemia and hypercalcemia-resolved. PLAN: At this time, her blood and urine culture showed no growth. We will continue with IV antibiotics and transition to something orally upon discharge. She will be transitioned to the medical floor now. Levophed has been discontinued and her blood pressure is stable. Bicarbonate is good. Electrolytes showed a low potassium, which was replaced accordingly with much improved potassium. She will be weaned off the insulin drip and then converted to subcutaneous insulin per Endocrinology. Continue with PT and OT evaluation. Lovenox for DVT prophylaxis. Consultants involved Pulmonary Critical Care and Endocrinology. MD KRISTIN Vaca/MING /[id number]
[2019-08-03 05:15] LABS: BASOPHILS % 0.3 % (0.0-1.0); EOSINOPHILS % 0.3 % (0.0-6.0); HEMATOCRIT 29.5 % (34.2-44.1); HEMOGLOBIN 10.1 g/dL (12.0-16.0); LYMPHOCYTES % 31.6 % (18.0-39.1); MEAN CORPUSCULAR HEMOGLOBIN 30.3 pg (28-32); MEAN CORPUSCULAR HGB CONC 34.2 g/dL (31-35); MEAN CORPUSCULAR VOLUME 88.6 fL (81-99); MONOCYTES # (AUTO) 0.7 (0.2-0.8); NEUTROPHILS # (AUTO) 3.5 (2.1-6.9); NEUTROPHILS % 56.2 % (38.7-80.0); PLATELET COUNT 177 x10e3/uL (140-360); RED BLOOD COUNT 3.33 x10e6/uL (3.6-5.1); RED CELL DISTRIBUTION WIDTH 15.7 % (11.7-14.4)
[2019-08-03 05:38] LABS: ANION GAP 8.9 mmol/L (8-16); BLOOD UREA NITROGEN 9 mg/dL (7-26); BUN/CREATININE RATIO 15 (6-25); CALCIUM 8.3 mg/dL (8.4-10.2); CARBON DIOXIDE 26 mmol/L (22-29); CHLORIDE 104 mmol/L (98-107); EST GLOMERULAR FILTRATION RATE > 60 ML/MIN (60-); GLUCOSE 199 mg/dL (74-118); SODIUM 136 mmol/L (136-145)
[2019-08-03 05:42] LABS: POTASSIUM 2.9 mmol/L (3.5-5.1)
[2019-08-03] MEDS: POTASSIUM CHLORIDE 20MEQ/100ML 200 ML IV PRN (05:56)
[2019-08-03] MEDS: DEXTROSE 5%/0.45% SOD CHL 1,000 ML IV SCH ×2 (05:57→15:22)
[2019-08-03] MEDS ORDERED: POTASSIUM CHLORIDE 20MEQ/100ML 200 ML ONE (06:01)
[2019-08-03] MEDS: LEVOTHYROXINE SODIUM 75 MCG TAB PO SCH (06:20)
[2019-08-03] MEDS: INSULIN LISPRO 100 UNIT/1 ML 3ML VIAL SQ SCH ×7 (07:53→21:30)
[2019-08-03] MEDS: ASPIRIN 81 MG CHEW TAB PO SCH (08:48)
[2019-08-03] MEDS: MEROPENEM 1GM 100 ML IV SCH ×2 (08:48→21:30)
[2019-08-03] MEDS: BALSAM PERU/CASTOR OIL 60 GM OINT...G. TP SCH (09:52)
--- NOTE | 2019-08-03 15:18 | Progress Note ---
DATE: 08/03/2019 Medicine Progress Note SUBJECTIVE: The patient is doing well today with no complaints. She is alert, awake, and oriented. She is eating her meals very well. PHYSICAL EXAMINATION: VITAL SIGNS: Temperature is 98.5, pulse 87, respiratory rate 16, blood pressure 135/73, and pulse ox 96% on room air. GENERAL: Not in acute distress. Alert and oriented x3. Cooperative on exam. PULMONARY: Clear to auscultation bilaterally. No wheezing, rales, or rhonchi. No crackles appreciated. CARDIOVASCULAR: Positive S1, S2. No murmurs, rubs, or gallops appreciated. ABDOMEN: Soft, nondistended, and nontender to palpation. Bowel sounds present. MUSCULOSKELETAL: She is ambulatory. Strength is 5/5 throughout. NEUROLOGIC: She is alert, awake, oriented on exam. SKIN: Intact, warm to touch. Good cap refill. EXTREMITIES: No edema. Good range of motion throughout. LABORATORY FINDINGS: Show white count 6.2, hemoglobin 10.1, hematocrit 29.5, and platelets of 177. Chemistry; reviewed shows a potassium of 2.9, currently being replaced. MICROBIOLOGY: All cultures have been negative. IMAGING STUDIES: Nothing new. IMPRESSION: 1. Septic shock, unknown etiology, it could be from underlying community-acquired pneumonia. 2. Diabetic ketoacidosis-resolved. 3. Anion gap metabolic acidosis-resolved. 4. Hypotension, resolved. 5. Lactic acidosis, resolved. 6. Acute kidney injury, secondary to dehydration with mild hyperkalemia, and hypercalcemia-resolved. PLAN: At this time, the patient is doing very well. She will be transferred to the medical floor. Continue with insulin as per Endocrinology. Electrolytes are stable except potassium is low, which is currently being replaced. She will receive another 40 mEq later this evening. Continue with Lovenox for DVT prophylaxis. Consultants involved Pulmonary Critical Care and Endocrinology. MD KRISTIN Vaca/MODL /[id number]
[2019-08-03] MEDS: ENOXAPARIN SOD INJ 40 MG/0.4 ML SYR SC SCH (17:00)
--- NOTE | 2019-08-03 17:06 | NUR ---
Nutrition Screen Note RD Recommendation for Physician: - Continue current diet as ordered Plan of Care: RD following, monitoring for tolerance and adequacy Nutrition reason for involvement: Nutrition Risk Trigger MST Primary Diagnose(s): DKA, sepsis PMH: hypothyroidism, type 2 diabetes, hypertension Ht: 62in Wt: 123.19lb BMI: 22.5kg/m2 IBW: 110lb +/- 10% RD Assessment: (08/02) Chart reviewed. Labs and meds reviewed. 84yo F, who was admitted for DKA and sepsis. BG was between 170 190 today, on insulin. Visited pt in the room. Pt reported good PO intake with current diet. No complain of nausea or vomiting. Pt denied any chewing or swallowing difficulty. Weight has been stable. Pt reported not being able to get the diabetic medication she needed due to insurance issue. Pt will be transfer to Med-Surg. Will continue to monitor and follow. Current Diet: ADA 1800 Malnutrition Evaluation (08/03/2019) The patient does not meet criteria for a specified degree of malnutrition at this time. Will re-evaluate at follow-up as appropriate. Diet Education Needs Assessment: Diet education not indicated. Pt reported many years history of diabetes and understood her diet well. Nutrition Care Level: low Signed: Yessenia Romano, MS, RD, LD
--- NOTE | 2019-08-03 17:40 | Progress Note ---
DATE: SUBJECTIVE: The patient is feeling better. She is off the insulin drip. She is not having fevers. OBJECTIVE: VITAL SIGNS: The patient's vital signs are stable. HEENT: Shows no facial swelling or erythema. CARDIAC: Reveals regular rate and rhythm with normal S1, S2. LUNGS: Auscultation of lungs shows decreased breath sounds at the bases. There is no wheezing. ABDOMEN: Soft, nontender. There is no rebound or guarding. EXTREMITIES: Shows no leg edema or calf tenderness. There is no cyanosis or clubbing. SKIN: Shows no rashes. NEUROLOGICAL: Shows no focal abnormalities. LABORATORY DATA: Potassium is 2.9. Other electrolytes within normal limits. CBC is normal. IMPRESSION: 1. Hypokalemia. 2. Diabetic ketoacidosis. 3. Acute kidney injury. 4. Anemia, unspecified. PLAN: 1. Transfer the patient out of intensive care unit. 2. Out of bed as tolerated. 3. Complete antibiotics and await culture results. 4. Replace potassium. 5. Case discussed with the patient, nursing staff, and Dr. Olivier. Raúl Castellano MD [facility]/MODL /[id number]
--- NOTE | 2019-08-03 18:14 | NUR ---
Patient arrived to room 299 in stable condition. IV fluids continued. Oriented to room and policies. Call light within reach. Bed in the lowest position.
--- NOTE | 2019-08-03 19:38 | NUR ---
Bedside shift report given to oncoming nurse. Patient is resting in bed. No acute distress noted. Call light within reach. Bed in the lowest position.
--- NOTE | 2019-08-03 19:40 | NUR ---
Patient visited in room during nursing rounds. Patient alert and oriented x3. Pt quite eccentric during conversations. On bedrest at this time. On IVF (D5 1/2NS at 80ml/hr) and on scheduled IV antibiotic treatment. Soto catheter in place for retention. Call wheeler within reach. Will monitor closely. Addendum: 08/04/19 at 0117 by Kenneth Joshua RN Correction: Soto catheter in place for accurate I & O's.
[2019-08-03] MEDS: INSULIN GLARGINE 100 UNITS/ML VIAL SQ SCH (21:30)
[2019-08-04] VITALS (9 sets, daily range): BP systolic 119–146; BP diastolic 60–88
[2019-08-04] MEDS: LEVOTHYROXINE SODIUM 75 MCG TAB PO SCH (05:47)
[2019-08-04] MEDS: DEXTROSE 5%/0.45% SOD CHL 1,000 ML IV SCH ×2 (05:47→20:59)
[2019-08-04 06:04] LABS: BASOPHILS % 0.3 % (0.0-1.0); EOSINOPHILS # (AUTO) 0.1 (0.0-0.4); HEMATOCRIT 29.8 % (34.2-44.1); HEMOGLOBIN 10.2 g/dL (12.0-16.0); LYMPHOCYTES # (AUTO) 1.8 (1.0-3.2); LYMPHOCYTES % 31.5 % (18.0-39.1); MEAN CORPUSCULAR HEMOGLOBIN 30.3 pg (28-32); MEAN CORPUSCULAR HGB CONC 34.2 g/dL (31-35); MEAN CORPUSCULAR VOLUME 88.4 fL (81-99); MONOCYTES # (AUTO) 0.6 (0.2-0.8); MONOCYTES % 9.6 % (4.4-11.3); NEUTROPHILS # (AUTO) 3.3 (2.1-6.9); NEUTROPHILS % 56.7 % (38.7-80.0); PLATELET COUNT 169 x10e3/uL (140-360); RED BLOOD COUNT 3.37 x10e6/uL (3.6-5.1); RED CELL DISTRIBUTION WIDTH 15.5 % (11.7-14.4)
[2019-08-04 06:18] LABS: BLOOD UREA NITROGEN 8 mg/dL (7-26); BUN/CREATININE RATIO 13 (6-25); CALCIUM 8.4 mg/dL (8.4-10.2); CARBON DIOXIDE 26 mmol/L (22-29); CHLORIDE 102 mmol/L (98-107); CREATININE, SERUM 0.64 mg/dL (0.57-1.11); EST GLOMERULAR FILTRATION RATE > 60 ML/MIN (60-); GLUCOSE 129 mg/dL (74-118); SODIUM 136 mmol/L (136-145)
--- NOTE | 2019-08-04 07:00 | NUR ---
Bedside shift report given to oncoming nurse. Patient is resting in bed. No acute distress noted at this time. Call light within reach. Bed in the lowest position. Bed alarm on. Addendum: 08/04/19 at 1917 by BLANCA MOSHER RN time, 1899
--- NOTE | 2019-08-04 07:08 | NUR ---
RECEIVED BEDSIDE SHIFT REPORT FROM OFF GOING NURSE. PATIENT IS RESTING IN BED. NO ACUTE DISTRESS NOTED AT THIS TIME. CALL LIGHT WITHIN REACH. BED IN THE LOWEST POSITION. BED ALARM ON.
[2019-08-04] MEDS: INSULIN LISPRO 100 UNIT/1 ML 3ML VIAL SQ SCH ×7 (07:30→21:01)
[2019-08-04] MEDS: POTASSIUM CHLORIDE 20 MEQ TAB CR PO SCH ×2 (08:00→16:53)
[2019-08-04] MEDS: MEROPENEM 1GM 100 ML IV SCH ×2 (08:00→21:00)
[2019-08-04] MEDS: ASPIRIN 81 MG CHEW TAB PO SCH (08:00)
[2019-08-04] MEDS: BALSAM PERU/CASTOR OIL 60 GM OINT...G. TP SCH (09:17)
[2019-08-04] MEDS: ENOXAPARIN SOD INJ 40 MG/0.4 ML SYR SC SCH (16:53)
--- NOTE | 2019-08-04 18:23 | Progress Note ---
DATE: 08/04/2019 Medicine Progress Note. SUBJECTIVE: The patient is doing well today with no complaints. No overnight events. She is tolerating diet well. PHYSICAL EXAMINATION: VITAL SIGNS: Temperature is 97.5, pulse 86, respiratory rate is 19, blood pressure is 132/88, pulse oximetry 98% on room air. LABORATORY DATA: Reviewed. White count 5.8, hemoglobin 10.2, hematocrit 29.8, platelets of 169. Chemistry: Sodium 136; potassium 3, replaced potassium; chloride 102; bicarbonate 26; anion gap of 11; BUN is 8; creatinine is 0.64. Hemoglobin A1c 9.9, calcium 8.4. OBJECTIVE: GENERAL: No acute distress, alert, oriented x3, cooperative on examination. HEENT: Head is normocephalic and atraumatic. Eyes; pupils are equal, round, and reactive to light bilaterally. Extraocular muscles are intact bilaterally. Throat; no evidence of any erythema or exudates in the posterior pharynx. Has poor dentition. NECK: Supple. Good range of motion throughout. PULMONARY: Clear to auscultation. No wheezing, rales, or rhonchi. No crackles appreciated. CARDIOVASCULAR: Positive S1 and S2. No murmurs, rubs, or gallops appreciated. ABDOMEN: Soft, nondistended, nontender to palpation. Bowel sounds present. MUSCULOSKELETAL: Strength is 5/5 throughout. No evidence of any muscle deficits on examination. No weakness appreciated. NEUROLOGIC: Cranial nerves 2 through 12 grossly intact. No evidence of any neurological deficits on exam. SKIN: Intact. Warm to touch. Good cap refill. PSYCHIATRIC: Normal affect and mood. EXTREMITIES: No edema. Good range of motion throughout. IMPRESSION: 1. Septic shock, unknown etiology, could be secondary to community-acquired pneumonia. 2. Diabetic ketoacidosis. 3. Anion gap metabolic acidosis. 4. Hypotension, resolved. 5. Lactic acidosis, resolved. 6. Acute kidney injury secondary to dehydration with mild hyperkalemia and hypocalcemia - resolved. PLAN: At this time, she is doing tremendously well. Her glucose is better controlled. She will be discharged on insulin per Endocrinology. Electrolytes are stable, except potassium was low, which I replaced. Lovenox for DVT prophylaxis. All cultures were negative. Consultants involved Pulmonary/Critical Care and Endocrinology. Plan to discharge home tomorrow if the patient is stable. MD KRISTIN Vaca/MING /[id number]
--- NOTE | 2019-08-04 19:00 | NUR ---
Bedside shift report given to oncoming nurse. Patient is resting in bed. No acute distress noted at this time. Call light within reach. Bed in the lowest position. Bed alarm on.
[2019-08-04] MEDS ORDERED: INSULIN GLARGINE 100 UNITS/ML VIAL SQ SCH (21:00)
[2019-08-05] VITALS (9 sets, daily range): BP systolic 125–137; BP diastolic 64–75
[2019-08-05] MEDS: LEVOTHYROXINE SODIUM 75 MCG TAB PO SCH (05:16)
[2019-08-05 06:23] LABS: BASOPHILS % 0.3 % (0.0-1.0); EOSINOPHILS # (AUTO) 0.1 (0.0-0.4); EOSINOPHILS % 2.1 % (0.0-6.0); HEMATOCRIT 30.2 % (34.2-44.1); HEMOGLOBIN 10.3 g/dL (12.0-16.0); LYMPHOCYTES % 31.9 % (18.0-39.1); MEAN CORPUSCULAR HEMOGLOBIN 30.8 pg (28-32); MEAN CORPUSCULAR HGB CONC 34.1 g/dL (31-35); MEAN CORPUSCULAR VOLUME 90.4 fL (81-99); MONOCYTES # (AUTO) 0.7 (0.2-0.8); NEUTROPHILS # (AUTO) 3.3 (2.1-6.9); PLATELET COUNT 177 x10e3/uL (140-360); RED BLOOD COUNT 3.34 x10e6/uL (3.6-5.1); RED CELL DISTRIBUTION WIDTH 15.6 % (11.7-14.4)
[2019-08-05 06:45] LABS: ANION GAP 6.7 mmol/L (8-16); BLOOD UREA NITROGEN 7 mg/dL (7-26); BUN/CREATININE RATIO 12 (6-25); CALCIUM 8.7 mg/dL (8.4-10.2); CARBON DIOXIDE 26 mmol/L (22-29); CHLORIDE 104 mmol/L (98-107); CREATININE, SERUM 0.59 mg/dL (0.57-1.11); EST GLOMERULAR FILTRATION RATE > 60 ML/MIN (60-); GLUCOSE 134 mg/dL (74-118); POTASSIUM 3.7 mmol/L (3.5-5.1); SODIUM 133 mmol/L (136-145)
[2019-08-05] MEDS: DEXTROSE 5%/0.45% SOD CHL 1,000 ML IV SCH (07:00)
[2019-08-05] MEDS: INSULIN LISPRO 100 UNIT/1 ML 3ML VIAL SQ SCH ×2 (07:30→09:23)
--- NOTE | 2019-08-05 07:57 | NUR ---
Bedside shift report given to oncoming nurse Valerie. Patient is resting in bed. No acute distress noted at this time. Right IJ patent, ports X 3 flushes well with good blood return, poss discharge today, Call light within reach. Bed in the lowest position. Bed alarm on
[2019-08-05] MEDS: ASPIRIN 81 MG CHEW TAB PO SCH (09:19)
[2019-08-05] MEDS: MEROPENEM 1GM 100 ML IV SCH (09:19)
[2019-08-05] MEDS: BALSAM PERU/CASTOR OIL 60 GM OINT...G. TP SCH (09:20)
[2019-08-05] MEDS: POTASSIUM CHLORIDE 20 MEQ TAB CR PO SCH (09:20)
--- NOTE | 2019-08-05 10:25 | NUR ---
Pt. expressed no spiritual or emotional concerns at this time. [facility] provided hospitality and information on the availability of speech communication professor and instructions on how to contact a speech communication professor. No need to follow at this time. SHERRY CARBONE [facility] Spiritual Care Department O: [phone]
--- NOTE | 2019-08-05 14:53 | NUR ---
SPOKE WITH PT EXTENSIVELY, EDUCATED ABOUT IMM OBTAINED SIGNATURE, FILED IN CHART AND LEFT COPY FOR RECORDS. PER ORDER GAVE WALKER SET UP TO HER HEIGHT, OBTAINED SIGNATURES AND PUT IN HOUSE SUP OFFICE TO FILE FOR PROCESSING. SPOKE WITH HER ABOUT HOME HEALTH AND WHAT THEY WILL BE ABLE TO DO FOR HER, SIGNED CHOICE FOR [facility] FILED CHOICE LETTER IN CHART AND FAXED CLINICALS TO [phone].
[2019-08-05] MEDS ORDERED: HUMALOG MI100 UNIT/2 SQ ×2 (15:02→15:03)
--- NOTE | 2019-08-05 15:10 | NUR ---
CALLED AND SPOKE WITH DEO WITH [facility] SHE HAS RECEIVED THE CLINICALS, THEY HAVE ACCEPTED THE PT AND WILL SEE HER BEGINNING TOMORROW.
--- NOTE | 2019-08-05 15:50 | NUR ---
Pt discharged home at this time. Pt verbalized understanding of all discharge instructions and follow up appts. Pt has good understanding of insulin administration. Right IJ removed and pressure dressing was applied. Soto catheter was discontinued at 1330 and pt was able to void without difficulty at 1400.
--- NOTE | 2019-08-05 16:21 | Discharge Summary ---
FINAL DISCHARGE DIAGNOSES: 1. Sepsis, presumed to be from underlying community-acquired pneumonia -- resolved. 2. Diabetic ketoacidosis -- resolved. 3. Anion gap metabolic acidosis -- resolved. 4. Hypotension -- resolved. 5. Lactic acidosis -- resolved. 6. Acute kidney injury, secondary to dehydration -- resolved. CONSULTANTS: 1. Pulmonary Critical Care. 2. Endocrinology. PHYSICAL EXAMINATION: VITAL SIGNS: Temperature is 97.8, pulse 83 respiratory rate 20, blood pressure is 125/76, pulse ox 97% on room air. LABORATORY DATA: Labs show white count 6.1, hemoglobin 10.3, hematocrit is 30, platelets of 177. Coagulation PT 12, INR 0.9, PTT 26.8. Chemistry, sodium 133, potassium 3.7 chloride 104 bicarb 26, anion gap of 6.7. BUN is 7, creatinine is 0.59, glucose 134, calcium is 8.7. Lactic acid on admission 2.2, 2.5, and then 1.9. She improved tremendously. Magnesium level last recorded 1.7. LFTs within normal range. Troponins were all negative. Albumin was 3.6. Urinalysis negative. Urine drug screen negative. MICROBIOLOGY: Blood cultures were negative. Urine cultures were negative. IMAGING STUDIES: Chest x-ray, bilateral perihilar and peribronchial thickening, which could be due to lower airway disease or viral infection. CT brain, mild generalized volume loss. No acute abnormalities noted. Chest x-ray on 08/01/2019 shows no acute thoracic or radiographic abnormality. HOSPITAL COURSE: An 84-year-old female, came into the ED with underlying septic shock, found also to be in diabetic ketoacidosis and was admitted to the ICU. The patient did not require any intubation. The patient was found to have anion gap metabolic acidosis as well as lactic acidosis, was found to have diabetic ketoacidosis. She was started on insulin DKA protocol and Endocrinology was consulted. The patient improved and her anion gap closed and she was eventually converted from insulin drip to subcutaneous long-acting insulin and pre-meal insulin. She was tolerating her diet well with no complaints. She was also on broad-spectrum IV antibiotics for treatment of underlying sepsis, presumed to be from a community-acquired pneumonia. All cultures, blood and urine cultures were found to be negative. She was being managed by Pulmonary Critical Care. She was discharged on oral antibiotics as well. Her chemistries were stable prior to being discharged to home. She was found to have acute kidney injury, secondary to dehydration and she was required several boluses of normal saline. Of note, she did have a central line at one point. She required IV pressors for blood pressure support initially in the early hospital stay. She was eventually doing well. She was then transferred to the medical floor. She was tolerating her diet well. She worked with PT and OT. She has been cleared for discharge by both consultants, Endocrinology and Pulmonary Critical Care. She will be discharged on insulin as per Endocrinology recommendations. Medications were adjusted accordingly. On the day of discharge, vital signs were stable, labs reviewed and stable. The patient is seen and evaluated and examined thoroughly on the day of discharge. No other complaints. 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 MEDICATIONS: See med reconciliation form. DISPOSITION: To home. CONDITION: Stable. DIET: Heart healthy. In the event of any worsening symptoms, the patient was advised to come back to the ED for further evaluation. Discharge summary took greater than 35 minutes. The patient has been cleared for discharge by all consultants and the patient was very stable prior to being discharged to home. MD KRISTIN Vaca/MODL /[id number]
[2019-08-05] MEDS ORDERED: INSULIN LISPRO 100 UNIT/1 ML 3ML VIAL SQ SCH (16:30)
== END 2019-08-05 15:55 | disposition home health service (06) | DRG 871 ==
LOC: ER 17:54 → ERHOLD 19:37 → ICU 08-01 → MED/SURG3 08-03 18:17
PROVIDERS: ADMIT Internal Medicine; ATTEND Internal Medicine
PROC: 02HV33Z Insertion of Infusion Device into Superior Vena Cava, Percutaneous Approach (ICD-10-PCS; principal; 2019-07-31)
DX: A41.9 Sepsis, unspecified organism (principal); J18.9 Pneumonia, unspecified organism; E11.10 Type 2 diabetes mellitus with ketoacidosis without coma; G93.41 Metabolic encephalopathy; R65.21 Severe sepsis with septic shock; R57.1 Hypovolemic shock; E87.2 Acidosis; N17.9 Acute kidney failure, unspecified; Z79.4 Long term (current) use of insulin; E86.0 Dehydration; I10 Essential (primary) hypertension; E03.9 Hypothyroidism, unspecified; E87.5 Hyperkalemia; E83.51 Hypocalcemia; H91.90 Unspecified hearing loss, unspecified ear
CPT/HCPCS: 36415; 70450; 71045; 80048; 80053; 80307; 80329; 81001; 82533; 82550; 82553; 82948; 83036; 83605; 83735; 83880; 84439; 84443; 84484; 85025; 85610; 85730; 87040; 87086; 93005; 93306; 96372; 96374; 96375; 97139; 99251; 99284; J1650; J1815; J1817; J3370; J3480; J7030; J7040; J7050; J7070; P9047

== ENCOUNTER → 2024-12-03 | Outpatient (REF) | payer MEDICARE ==
[~2024-12-03] MED LIST changes: +HUMALOG MI100 UNIT/2 SQ
== END ==
LOC: DX 09:49
PROVIDERS: ATTEND Internal Medicine
DX: M85.88 Other specified disorders of bone density and structure, other site (principal)
CPT/HCPCS: 77080